=== PATIENT | female | born 1960 | race Caucasian/White ===

== ENCOUNTER 2018-06-11 06:48 | Inpatient (IN) | payer OTHER ==
[~2018-06-11 06:48] MED LIST: POVIDONE-IODINE 20 ML in SODIUM CL IRRIG SOLUTION 500 ML IRR ONE; ROPIVACAINE 0.2% 80 MG, EPINEPHrine 0.2 MG, KETOROLAC TROMETHAMINE 30 MG in SYRINGE 0 ML IU ONE; TRANEXAMIC ACID 2,000 MG in NS 100 ML IV ONE
[2018-06-11] MEDS ORDERED: ONDANSETRON 4 MG/2 ML VIAL IVP ONE (07:05)
[2018-06-11] MEDS ORDERED: FAMOTIDINE 20 MG TAB PO ONE (07:05)
[2018-06-11] MEDS ORDERED: LIDOCAINE 1% 2 ML INJ ID PRN (07:05)
[2018-06-11] MEDS ORDERED: DEXAMETHASONE 4 MG/ML VIAL IVP ONE (07:05)
[2018-06-11] MEDS ORDERED: ceFAZolin 2 GM/DEXTROSE 100 ML IV ONE (07:05)
[2018-06-11] MEDS ORDERED: ACETAMINOPHEN 325 MG TAB PO ONE (07:05)
[2018-06-11] MEDS ORDERED: LR 1,000 ML IV ONE (07:05)
[2018-06-11] MEDS ORDERED: GABAPENTIN 300 MG CAP PO ONE (07:05)
[2018-06-11] MEDS ORDERED: ceFAZolin 1 GM/5 ML SYR ONE ×2 (10:25→12:50)
--- NOTE | 2018-06-11 12:21 | PDHPUP ---
History & Physical Update H&P update statement: This history and physical update is based on an assessment of the patient which was completed after admission or registration (within 24 hours), but prior to the surgery/procedure. H&P update: H&P reviewed & patient examined
[2018-06-11] MEDS ORDERED: PROPOFOL/EMULSION 500 MG/50 ML BOTTLE IV ONE ×3 (12:38→14:30)
[2018-06-11] MEDS ORDERED: BUPIVACAINE 0.75% 10 ML SDV ONE (12:40)
[2018-06-11] MEDS ORDERED: MIDAZOLAM 2 MG/2 ML VIAL IVP ONE (12:43)
--- NOTE | 2018-06-11 12:46 | PDANEPAE ---
ANE Past Medical History - Cardiovascular History Hx Hypertension: No Hx Arrhythmias: No Hx Chest Pain: No Hx Coronary Artery / Peripheral Vascular Disease: No Hx CHF / Valvular Disease: No Hx Palpitations: No - Pulmonary History Hx COPD: No Hx Asthma/Reactive Airway Disease: No Hx Recent Upper Respiratory Infection: No Hx Oxygen in Use at Home: No Hx Sleep Apnea: No Sleep Apnea Screening Result - Last Documented: Negative Pulmonary History Comment: SOME SOB W/STAIRS - Neurologic History Hx Cerebrovascular Accident: No Hx Seizures: No Hx Dementia: No - Endocrine History Hx Diabetes: No Obesity: moderate - Renal History Hx Renal Disorders: No - Liver History Hx Hepatic Disorders: No Hepatic History Comment: [place] - Neurological & Psychiatric Hx Hx Neurological and Psychiatric Disorders: No Neurological / Psychiatric History Comment: CLAUSTROPHOBIA - Cancer History Hx Cancer: No - Congenital Disorder History Hx Congenital Disorders: No - GI History Hx Gastrointestinal Disorders: No - Other Health History Other Health History: RECENT ALO ANKLE SWELLING - Chronic Pain History Chronic Pain: Yes (R HIP) - Surgical History Prior Surgeries: CHOLECYSTECTOMY. PLASTIC SURGERY NOSE ANE Review of Systems Review of Systems: - Exercise capacity METS (RN): 3 METS ANE Patient History - Allergies Allergies/Adverse Reactions: No Known Allergies Allergy (Unverified 05/27/18 16:32) - Home Medications Home medications: home medication list seen and reviewed Home Medications: Fluticasone Propionate [Flonase Allergy Relief] 1 spray NASAL DAILY PRN [Last Taken 06/04/18] Meloxicam [Mobic 15 mg] 15 mg PO DAILY PRN 05/27/18 [Last Taken 06/04/18] traMADol [Ultram 50 mg (*)] 50 mg PO Q6H PRN 05/27/18 [Last Taken 06/10/18 12:00 ] - NPO status NPO Status: no food or drink >8 hours NPO Since - Liquids (Date): 06/10/18 NPO Since - Liquids (Time): 22:30 NPO Since - Solids (Date): 06/10/18 NPO Since - Solids (Time): 19:00 - Anes Hx Anes Hx: no prior problems - Smoking Hx Smoking Status: Former smoker - Family Anes Hx Family Hx Anesthesia Complications: NEG ANE Labs/Vital Signs - Vital Signs Blood Pressure: 147/82 Heart Rate: 65 Respiratory Rate: 16 O2 Sat (%): 95 Height: 162.56 cm Weight: 104.326 kg ANE Physical Exam - Airway Neck exam: FROM Mallampati Score: Class 2 Mouth exam: normal dental/mouth exam - Pulmonary Pulmonary: no respiratory distress, no rales or rhonchi - Cardiovascular Cardiovascular: regular rate and rhythym, no murmur, rub, or gallop, systolic murmur - ASA Status ASA Status: II ANE Anesthesia Plan Anesthesia Plan: spinal
[2018-06-11] MEDS ORDERED: LIDOCAINE 2% 5 ML SDV ONE (12:53)
[2018-06-11] MEDS ORDERED: LABETALOL HCL 5 MG/ML 20 ML MDV ONE (14:45)
[2018-06-11] MEDS ORDERED: ACETAMINOPHEN 500 MG TAB PO PRN (15:25)
[2018-06-11] MEDS ORDERED: LR 500 ML IV PRN (15:25)
[2018-06-11] MEDS ORDERED: DEXAMETHASONE 4 MG/ML VIAL IVP PRN (15:25)
[2018-06-11] MEDS ORDERED: HYDROCODONE/APAP 5/325 TAB PO PRN (15:25)
[2018-06-11] MEDS ORDERED: LABETALOL HCL 5 MG/ML 20 ML MDV IVP PRN (15:25)
[2018-06-11] MEDS ORDERED: oxyCODONE IR 5 MG TAB PO PRN (15:25)
[2018-06-11] MEDS ORDERED: fentaNYL 100 MCG/2 ML INJ IVP PRN (15:25)
[2018-06-11] MEDS ORDERED: NALOXONE HCL 0.4 MG/ML INJ IVP PRN (15:25)
[2018-06-11] MEDS ORDERED: PROMETHAZINE HCL 25 MG/ML INJ IVP PRN ×2 (15:25→15:47)
--- NOTE | 2018-06-11 15:39 | POSTANESTH ---
Post Anesthetic Evaluation Cardiovascular Status: Normal, Stable, Similar to Pre-Op Cond Respiratory Status: Normal, Stable, Similar to Pre-op Cond. Level of Consciousness/Mental Status: Can Participate in Eval, Alert and Oriented Pain Control: Adequate, Prn Tx Ordered Nausea/Vomiting Control: Adequate, Prn Tx Ordered Complications Possibly Related to Anesthesia: None Noted
[2018-06-11] MEDS ORDERED: METOCLOPRAMIDE 10 MG/2 ML VIAL IVP PRN (15:47)
[2018-06-11] MEDS ORDERED: DIPHENOXYLATE/ATROPINE LOMOTIL 1 TAB PO PRN (15:47)
[2018-06-11] MEDS ORDERED: traMADol 50 MG TAB PO PRN (15:47)
[2018-06-11] MEDS ORDERED: NS 500 ML IV PRN (15:47)
[2018-06-11] MEDS ORDERED: LACTULOSE 20 GM/30 ML UDCUP PO PRN (15:47)
[2018-06-11] MEDS ORDERED: diphenhydrAMINE 25 MG CAP PO PRN (15:47)
[2018-06-11] MEDS ORDERED: CYCLOBENZAPRINE 10 MG TAB PO PRN (15:47)
[2018-06-11] MEDS ORDERED: TEMAZEPAM 15 MG CAP PO PRN (15:47)
[2018-06-11] MEDS ORDERED: BISACODYL 10 MG SUPP PR PRN (15:47)
[2018-06-11] MEDS ORDERED: ONDANSETRON DISINTEGRATING 4 MG TAB PO PRN (15:47)
[2018-06-11] MEDS ORDERED: ONDANSETRON 4 MG/2 ML VIAL IVP PRN (15:47)
[2018-06-11] MEDS ORDERED: PROMETHAZINE HCL 25 MG SUPPR PR PRN (15:47)
[2018-06-11] MEDS ORDERED: POLYETHYLENE GLYCOL 3350 17 GM PKT PO PRN (15:47)
[2018-06-11] MEDS ORDERED: MAGNESIUM HYDROXIDE 30 ML UDCUP PO PRN (15:47)
[2018-06-11] MEDS ORDERED: fentaNYL 100 MCG/2 ML INJ ONE (15:55)
[2018-06-11] MEDS ORDERED: LR 1,000 ML IV SCH (16:00)
--- NOTE | 2018-06-11 16:27 | GOP ---
[f rep st] OPERATIVE REPORT DATE OF OPERATION: 06/11/2018 SURGEON: True Mills MD DECKHAND: Syed Montenegro CFA. Eric Pierce, PAC. ANESTHESIA: A combination of Marcaine, spinal, and IV sedation. ANESTHESIOLOGIST: Jose Martin Ugarte MD. PREOPERATIVE DIAGNOSIS: Right hip severe degenerative arthritis. POSTOPERATIVE DIAGNOSIS: Right hip severe degenerative arthritis. PROCEDURE PERFORMED: Right total hip arthroplasty, ceramic femoral head on highly cross-linked polye thylene cup liner. FINDINGS: ESTIMATED BLOOD LOSS: About 500 mL. DESCRIPTION OF PROCEDURE: The patient was given 2 g of IV Ancef preoperatively within 60 minutes of surgery. She also received IV tranexamic acid at a dose of 2000 mg. She was placed on the operating room table and given spinal anesthesia with Marcaine by Dr. Ugarte. She was then placed supine and g iven IV sedation. A Mathur catheter was not used. She wore a BUDDY stocking and SCD on the nonoperativ e leg. She was rolled to the left lateral decubitus position. Positioning was very difficult [facility] of her size. She was very obese. Her BMI was 39. The position was secured with the pegboard tabl e attachment. An axillary roll was used, and all pressure points were carefully padded. I was caref ul to lock her pelvis in a vertical position as best I could. Her perineum was isolated with plastic adhesive drapes. Her right hip and right lower extremity were prepped with ChloraPrep. They were d raped free using sterile sheets, stockinette, and Ioban plastic drapes. The [employer] time-out was performed to verify the correct surgical side and site and the correct patient identity. The [place] time-out was also performed. I made a 7 or 8-inch straight oblique posterolateral hip skin incision. I had to use a [id number] ormal incision because of her size and bulk. The subcutaneous tissues were sharply divided, and hemo stasis was obtained using electrocautery. She had approximately a 4-inch deep layer of subcutaneous fat. Her fascia winifred was identified and split along the axis of its fibers. I then curved posterior ly and proximally, and split the fascia of the gluteus renee and bluntly split the muscle fibers in line with their orientation. The Charnley self-retaining retractor was inserted. I had to use all bariatric retractors and instruments because of the depth of the wound. Her sciatic nerve was locate d and protected throughout the procedure. The external rotators and the posterior hip capsule were d ivided as separate layers at the base of the femoral neck, tagged, and reflected posteriorly. A smoo th 1/8-inch Steinmann pin was inserted vertically into the ilium, superior to the acetabulum. A 1/8- inch drill bit was inserted vertically into the greater trochanter and parallel to the first pin. Th e distance between the two was measured for leg length reference. Her femoral head was dislocated po steriorly. Severe degenerative changes were present on the femoral head. The femoral neck was osteo tomized at the appropriate level and inclination. I was careful to preserve all the posterior capsule and most of the anterior capsule. The remnant of her damaged labrum was excised. I prepared the femur first. This allowed me to derrick worker the amount of natural femoral neck anteversion. This, in turn, allowed me to later determine the correct amount of cup anteversion. She had approx imately 10 degrees of natural femoral neck anteversion. The canal was opened laterally with a box ch mary. I reamed and hand broached sequentially up to a size 5. I used a Óscar Accolade II stem wit h high offset in size 5 as a trial stem. I was careful to lateralize adequately. Appropriate retractors were inserted to expose her acetabulum. The acetabulum was reamed sequentiall y up to size 51 mm. She had a cyst in the anterior superior acetabulum. This was curetted down to h ealthy bone. I took some of the most recent reamings to create a slurry of bone graft which I packed into the cyst. I selected a 52 mm Óscar Trident II Tritanium cluster hole hemispherical shell. T his was tapped into place. The fixation was not as tight as was needed. I went back and reamed anot her millimeter or 1.5 mm deeper. I then inserted the cup and tapped it securely into place and achie celina a tight fit. I used two 25 mm supplemental fixation screws through the shell. I was careful to position the cup in the proper degree of inclination and anteversion. I used the transverse acetabul ar ligament and other acetabular bony landmarks to help me properly orient the cup. I performed a series of trial reductions to determine length and stability. I concluded that the siz e 5 stem with high offset and a -2.5 mm neck with a 10 degree lipped liner gave me the proper combina tion of appropriate length and good anterior and posterior stability. She was a few millimeters shor t preoperatively, and I was intentionally lengthening her. The 10-degree lipped [place] X3 highly cross-linked polyethylene liner was inserted and tapped secure ly into place. The [place] Accolade II high offset stem in size 5 was inserted press-fit and was a g ood tight fit. I did 1 final reduction and confirmed that the -2.5 neck with a 36 mm head was the pr oper combination. The [place] Biolox Delta ceramic head with an outside diameter of 36 mm and a neck length of -2.5 mm was tapped securely onto the clean trunnion. Her acetabulum was irrigated, cleane d, and the hip was reduced 1 final time. She had excellent anterior and posterior stability and appr opriate lengthening. 40 mL of the joint anesthetic cocktail was injected into the capsule, the deep musculature, and the s ubcutaneous tissues around the skin edges. The joint was thoroughly irrigated 1 final time with a di lute Betadine solution. Her sciatic nerve was reinspected and looked unharmed. The external rotators and the posterior hip capsule were repaired in separate layers with #2 FiberWir e sutures through drill holes in the greater trochanter. This provided a strong posterior capsular a nd external rotator repair. The fascia winifred was closed first with 2 interrupted [id number] #2 F iberWire sutures followed by a running #2 barbed Ethicon Stratafix PDO suture. The subcutaneous tiss ues were closed in layers, first with interrupted 2-0 Monocryl sutures followed by a running 0 barbed Ethicon StrataFix Monoderm suture. The skin was closed with a running 3-0 barbed Ethicon Stratafix Monoderm subcuticular suture. The skin edges were reapproximated and sealed with Dermabond glue. Th e wound was covered with a large piece of waterproof Mepilex surgical dressing. The Mepilex sacral d ressing was also applied. A long-leg BUDDY stocking and SCD were applied to her right lower extremity. She wore a stocking and S CD on the opposite leg during the procedure. An abduction pillow was placed between her knees. She was awakened from anesthesia and rolled to the supine position on her [facility]. She was taken to PACU in satisfactory condition. There were no recognized intraoperative complications. I was ca reful to protect her nerve during the procedure, but it required quite a bit of strenuous retraction in order to get exposure because of the depth of the wound. COUNTS: The sponge and needle count were correct on 2 occasions. IMPLANTS: I used a [place] Tritanium hemispherical cluster hole acetabular shell with an outside princess meter of 52 mm. The liner was a Óscar X3 10-degree lipped, highly cross-linked liner with an insid e diameter of 36 mm. I used two 25 mm fixation screws. The femoral component was a [place] press-fi t high offset Accolade II stem in a size 5. The femoral head was a Óscar Biolox Delta ceramic head with a -2.5 mm neck length and a 36 mm outside diameter. Syed Montenegro and Zafar Pierce acted as surgical assistants. Their assistance was a medical necess ity for the safe completion of the procedure. /[id number]/MODL
[2018-06-11] MEDS: ACETAMINOPHEN 325 MG TAB PO SCH (17:09)
[2018-06-11] MEDS: oxyCODONE IR 5 MG TAB PO PRN ×2 (17:10→20:18)
--- NOTE | 2018-06-11 17:20 | PDMN ---
Medical Necessity Medical necessity: Pt meets INPT criteria per and [facility] S-[facility] Hip Arthroplasty ( INPT Only surgery).
[2018-06-11] MEDS: KETOROLAC 15 MG/1 ML SDV IVP SCH (17:30)
[2018-06-11] MEDS: SENNOSIDES/DOCUSATE SODIUM TAB PO SCH (20:18)
[2018-06-11] MEDS: FAMOTIDINE 20 MG TAB PO SCH (20:18)
[2018-06-11] MEDS ORDERED: ASPIRIN 325 MG TAB PO SCH (21:00)
[2018-06-12] MEDS: KETOROLAC 15 MG/1 ML SDV IVP SCH ×2 (00:07→06:29)
[2018-06-12] MEDS: ACETAMINOPHEN 325 MG TAB PO SCH ×2 (00:07→06:30)
[2018-06-12] MEDS: ceFAZolin 2 GM/DEXTROSE 100 ML IV SCH ×2 (00:07→06:30)
[2018-06-12] MEDS: oxyCODONE IR 5 MG TAB PO PRN (00:07)
--- NOTE | 2018-06-12 07:31 | SOAPPROG ---
SOAP Progress Note Assessment/Plan: Assessment: Awake and alert. Moderate pain. Up and walking in room. H/H is good. Sciatic nerve intact. Dsg is dry. Need cath x 1 in PACU. Voiding spont since. Plan:PT today. DC later today. Pt is higher risk for DVT d/t obesity. Will use lovenox. 06/12/18 07:29 Objective: Vital Signs Temp Pulse Resp BP Pulse Ox 36.8 C 63 16 108/53 L 96 06/12/18 04:54 06/12/18 04:54 06/12/18 04:54 06/12/18 04:54 06/12/18 04:54 Laboratory Results 06/12/18 04:46 06/11/18 06/12/18 06/13/18 05:59 05:59 05:59 Intake Total 2090 Output Total 1600 Balance 490 ICD10 Worksheet Patient Problems: Problems Problem Status Onset Osteoarthritis of right hip Acute
[2018-06-12 07:33] VITALS: BP 118/65
--- NOTE | 2018-06-12 07:51 | GDS ---
[f rep st] DISCHARGE SUMMARY ADMISSION DIAGNOSES: 1. Right hip severe degenerative arthritis. 2. Obesity. DISCHARGE DIAGNOSES: 1. Right hip severe degenerative arthritis. 2. Obesity. OPERATION PERFORMED: 06/11/2018, a right total hip arthroplasty. POSTOPERATIVE COMPLICATIONS: None. CONDITION ON DISCHARGE: Improved. DESCRIPTION OF HOSPITAL COURSE: The patient was admitted to the hospital on the morning of surgery. Her admission CBC was normal. The same day, under a combination of Marcaine, spinal, and IV sedatio n, she underwent a right total hip arthroplasty. Postoperatively, she required urinary catheterizati on in the PACU 1 time. She was able to void spontaneously after that. On the first postoperative da y, her hemoglobin and hematocrit were 12.3 and 37.6. Due to her obesity, she is at a higher risk for DVT. She was treated with Lovenox for DVT prophylaxis. She was seen by Physical Therapy and made g ood progress with ambulation and stairs. By the time of discharge, she was afebrile and was independ ent, walking with a walker. DISPOSITION: She is discharged to her home in [place]. She will go to outpatient physical therapy in [place]. She will be 50% weightbearing on the right for the first 3 weeks. Use an abduction pil low in bed for 3 weeks. BUDDY stockings for 1 week. Lovenox 40 mg daily subcu for 21 days. I will se e her back in the office in 3 weeks. If there are any problems, she is to call me at the office. /[id number]/MODL
[2018-06-12] MEDS: SENNOSIDES/DOCUSATE SODIUM TAB PO SCH (08:42)
[2018-06-12] MEDS: FAMOTIDINE 20 MG TAB PO SCH (08:42)
[2018-06-12] MEDS ORDERED: ENOXAPARIN 40 MG/0.4 ML SYR SC SCH (09:00)
[2018-06-12] MEDS ORDERED: FERROUS SULFATE 140 MG TAB.ER PO SCH (09:00)
[2018-06-12] MEDS ORDERED: FLUTICASONE NASAL 120 SPRAYS/16 GM MDI EACHNARE PRN (09:00)
--- NOTE | 2018-06-12 09:05 | ASMTLACE ---
[facility] Length of stay for Answers: 1 day current admission Acuity / Level of Answers: Yes Care: Did the patient have an inpatient admission? Comorbidities - select Answers: Opioid dependence all that apply / Chronic pain # of Emergency department Answers: 1-2 visits in the last 6 months Score: 9 Date Signed: 06/12/2018 09:04 AM Electronically Signed By:Selin Rodriguez RN
--- NOTE | 2018-06-12 09:07 | ASMTCMCOM ---
CM Note CM Note Notes: Chart reviewed. Patient has been medically cleared for discharge to home with outpatient therapy. No needs identified at this time. CM available should needs arise. plan: Home with outpatient therapy. Date Signed: 06/12/2018 09:06 AM Electronically Signed By:Selin Rodriguez RN
== END 2018-06-12 10:38 | disposition home or self-care (01) | DRG 470 ==
LOC: F3N 06:48
PROVIDERS: ADMIT Orthopaedic Surgery; ATTEND Orthopaedic Surgery
PROC: 0SR904Z Replacement of Right Hip Joint with Ceramic on Polyethylene Synthetic Substitute, Open Approach (ICD-10-PCS; principal; 2018-06-11 09:00)
DX: M16.11 Unilateral primary osteoarthritis, right hip (principal); E66.9 Obesity, unspecified; Z68.39 Body mass index [BMI] 39.0-39.9, adult; R60.0 Localized edema; M54.5 Low back pain; R94.31 Abnormal electrocardiogram [ECG] [EKG]; Z87.891 Personal history of nicotine dependence
CPT/HCPCS: 97161-GP; 97165-GO; C1713; J0171; J0690; J1100; J1650; J1885; J2250; J2704; J2795; J3010